=== PATIENT | female | born 1955 | race Caucasian/White ===

== ENCOUNTER → 2017-02-10 | Outpatient (CLI) | payer OTHER ==
[~2017-02-10] MED LIST: AMBIEN 5 MG TABL5 M1 PO; AUGMENTIN 875875 MG PO; CALCIUM 600 +1 EAC1 PO; CARISOPRODOL 3350 MG PO; CELEXA20 MG PO; CLONAZEPAM 1 MG1 M1 PO; HYDROCODONE-AP1 EAC6 PO; IRON325 PO; MULTIVITAMINS1 EAC7 PO; PAXIL10 MG; SAVELLA100 MG PO; TRAMADOL 50 MG50 MG PO; TUMS PO; VITAMIN B-12500 MCG PO; VITAMIN D3400 UNI1 PO; VITAMIN E400 UNI3 PO; VITAMINC500 PO; ZANTAC 150MG T150 MG PO
== END ==
LOC: M.ULTRA 13:52
DX: M79.605 Pain in left leg (principal); M79.89 Other specified soft tissue disorders

== ENCOUNTER 2019-12-03 20:07 | Emergency (ER) | payer OTHER, MEDICARE ==
[2019-12-03 20:55] LABS: HEMATOCRIT 38.7 % (37.0-47.0); MCH 33.9 pg (26.0-34.0); MCHC 33.7 g/dL (28.0-37.0); MCV 100.8 fL (80.0-100.0); MPV 6.9 fl. (7.2-11.1); NUCLEATED RBCS 0 /100WBC; PLATELET COUNT* 504 thou/uL (150-400); RBC 3.84 mil/uL (4.20-5.00); RDW-CV 12.9 % (10.5-14.5); WBC 19.7 thou/uL (4.0-11.0)
[2019-12-03] MEDS ORDERED: NAPHCON-A EYE D15 ML (21:02)
[2019-12-03] MEDS ORDERED: OXAZEPAM 10MG C10 M1 (21:03)
[2019-12-03] MEDS ORDERED: LOVASTATIN 20 M20 MG PO (21:03)
[2019-12-03] MEDS ORDERED: AMITRIPTYLINE H10 M1 (21:04)
[2019-12-03 21:09] LABS: APTT 29.1 Seconds (25.0-31.3); PROTIME 10.8 Seconds (9.20-11.50)
[2019-12-03 21:23] LABS: ALBUMIN 3.2 g/dL (3.4-5.0); CALCIUM 9.6 mg/dL (8.5-10.1); CK-MB MASS 12.9 ng/mL (<0.5-3.6); POTASSIUM 3.3 mmol/L (3.5-5.1); TOTAL BILIRUBIN 0.5 mg/dL (<0.1-1.0); TOTAL PROTEIN 8.9 g/dL (6.4-8.2)
[2019-12-03 21:27] LABS: ABSOLUTE LYMPHOCYTES 1.2 thou/uL (0.8-5.3); ABSOLUTE NEUTROPHILS 17.5 thou/uL (1.6-8.1)
[2019-12-03 21:28] LABS: PLATELET ESTIMATE INCREASED
[2019-12-03 21:37] LABS: CREATININE 0.7 mg/dL (0.6-1.3)
[2019-12-03 21:50] VITALS: BP 140/89
--- NOTE | 2019-12-04 10:22 | EKG ---
[place] [address] ELECTROCARDIOGRAM REPORT Name: MARLENE URBINA Room: [facility]#: [id number] Admission: 12/03/19 Attend Phys: Discharge: 12/03/19 Date of : 53 Date of Service: 12/03/192041 Report #: [id number] THIS REPORT FOR: //name// [facility] ED Test Date: 2019-12-03 Test Time: 20:42:40 Pat Name: MARLENE URBINA Department: Room: Gender: Recreational Counselor: CARLO : 1955 Requested By: Ed Penaloza Order Number: [id number] MD: Jonah Leyva Measurements Intervals [place] Rate: 112 P: 68 TN: 108 QRS: -22 QRSD: 98 T: 225 QT: 393 QTc: 537 Interpretive Statements Sinus tachycardia artifact noted Borderline left axis deviation Abnormal T, consider ischemia, diffuse leads Prolonged QT interval Compared to ECG 11/07/2013 08:45:41 Prolonged QT interval now present Sinus rhythm no longer present T-wave abnormality still present Electronically Signed On 12-04-2019 10:22:26 CDT by Jonah Leyva [email or web address] <ELECTRONICALLY SIGNED> By: Jonah Leyva MD, FACC 12/04/191021 41 41 Jonah Leyva MD, FACC /EPI
== END 2019-12-03 21:50 | disposition home or self-care (01) ==
LOC: M.ERS 20:07
PROVIDERS: Family Medicine
DX: T40.691A Poisoning by other narcotics, accidental (unintentional), initial encounter (principal); R41.82 Altered mental status, unspecified; M79.7 Fibromyalgia; M19.90 Unspecified osteoarthritis, unspecified site; Z88.6 Allergy status to analgesic agent; Z88.5 Allergy status to narcotic agent; Y92.89 Other specified places as the place of occurrence of the external cause

== ENCOUNTER 2020-06-23 10:35 | Emergency (ER) | payer OTHER ==
[~2020-06-23] VITALS: Ht 157.5 cm; Wt 48.1 kg
[~2020-06-23 10:35] MED LIST changes: +AMITRIPTYLINE H10 M1; +LOVASTATIN 20 M20 MG PO; +NAPHCON-A EYE D15 ML; +OXAZEPAM 10MG C10 M1
[2020-06-23 10:59] LABS: ABSOLUTE EOSINOPHILS 0.2 thou/uL (0.0-0.7); ABSOLUTE LYMPHOCYTES 1.1 thou/uL (0.8-5.3); ABSOLUTE MONOCYTES 0.8 thou/uL (0.0-1.2); ABSOLUTE NEUTROPHILS 10.5 thou/uL (1.6-8.1); BASOPHILS 0.3 %; EOSINOPHILS 1.3 %; HEMOGLOBIN 10.8 gm/dL (12.0-15.0); LYMPHOCYTES 8.4 %; MCH 30.1 pg (26.0-34.0); MCHC 32.6 g/dL (28.0-37.0); MCV 92.1 fL (80.0-100.0); MONOCYTES 6.4 %; MPV 5.9 fl. (7.2-11.1); NUCLEATED RBCS 0 /100WBC; PLATELET COUNT* 731 thou/uL (150-400); POLYS 83.6 %; RBC 3.58 mil/uL (4.20-5.00); RDW-CV 15.4 % (10.5-14.5); WBC 12.5 thou/uL (4.0-11.0)
[2020-06-23 11:08] LABS: CALCIUM 9.1 mg/dL (8.5-10.1); CREATININE 0.5 mg/dL (0.6-1.3); POTASSIUM 3.6 mmol/L (3.5-5.1)
[2020-06-23 11:12] LABS: APTT 28.4 Seconds (25.0-31.3); PROTIME 10.5 Seconds (9.20-11.50)
[2020-06-23 11:13] LABS: TOTAL BILIRUBIN 0.2 mg/dL (<0.1-1.0); TOTAL PROTEIN 8.3 g/dL (6.4-8.2)
[2020-06-23 12:09] LABS: ESR (SEDRATE) 112 mm/hr (0-30)
[2020-06-23 17:30] VITALS: BP 140/95
== END 2020-06-23 17:30 | disposition short-term general hospital (02) ==
LOC: M.ERS 10:35
PROVIDERS: Family Medicine
DX: M00.9 Pyogenic arthritis, unspecified (principal); Z20.822 Contact with and (suspected) exposure to COVID-19; M19.90 Unspecified osteoarthritis, unspecified site; M79.7 Fibromyalgia; Z88.6 Allergy status to analgesic agent; Z88.5 Allergy status to narcotic agent; Z88.1 Allergy status to other antibiotic agents; Z79.899 Other long term (current) drug therapy; Z96.642 Presence of left artificial hip joint